=== PATIENT | male | born 1965 | race Caucasian/White ===

== ENCOUNTER 2022-12-25 08:55 | Emergency (ER) | payer MEDICAID ==
[~2022-12-25] VITALS: Ht 188 cm; Wt 95.3 kg
[2022-12-25 09:26] VITALS: BP 138/79
[2022-12-25] MEDS ORDERED: ACETAMINOPHEN 325 MG TAB PO ONE (09:35)
--- NOTE | 2022-12-25 09:45 | NUR ---
57 yo/m presents to ED w c/o fevers, diarrhea and body aches 9/ x1 day. pt took ibuprofen this morning whith some relief. pt denies chest pain, or sob. pmh: denies allergies: denies
--- NOTE | 2022-12-25 11:28 | NUR ---
Patient ambulated to bed 7.
--- NOTE | 2022-12-25 11:39 | NUR ---
COVID and Flu swabs obtained, walked to lab. Handed to CPT. Lencho
[2022-12-25] MEDS ORDERED: ONDANSETRON 4 MG ODT PO ONE (12:25)
--- NOTE | 2022-12-25 13:05 | NUR ---
Patient is laying in bed, respirations even and unlabored. All needs met by staff.
[2022-12-25] MEDS ORDERED: ACET-10509 PO (13:47)
[2022-12-25] MEDS ORDERED: IMO2 PO (13:47)
[2022-12-25] MEDS ORDERED: IBUP-2213 PO (13:47)
[2022-12-25] MEDS ORDERED: ONDA-188 PO (13:47)
[2022-12-25 14:05] VITALS: BP 119/70
--- NOTE | 2022-12-25 14:05 | NUR ---
Patient discharged with v/s stable. Written and verbal after care instructions given. Patient alert, oriented and verbalized understanding of instructions. Ambulatory with steady gait. All questions addressed prior to discharge. ID band removed. Patient advised to follow up with PMD. Rx of Tylenol, Ibuprofen, Loperamide and Zofran given. Opportunity to ask questions provided and answered. WORK NOTE HANDED TO PATIENT.
--- NOTE | 2022-12-25 14:37 | NUR ---
The patient's care was reviewed and supervised by ED Agency Nurse 7, RN, RN.
== END 2022-12-25 14:05 | disposition home or self-care (01) ==
LOC: MED 08:55
DX: A08.4 Viral intestinal infection, unspecified (principal); Z20.822 Contact with and (suspected) exposure to COVID-19; Z79.899 Other long term (current) drug therapy; Z79.1 Long term (current) use of non-steroidal anti-inflammatories (NSAID)
CPT/HCPCS: 71046; 87426; 87804; 99284; Q0162